=== PATIENT | female | born 1985 ===

== ENCOUNTER 2018-10-29 02:13 | Inpatient (IN) | payer OTHER ==
[2018-10-29 03:50] VITALS: BMI 21.4
[2018-10-29] MEDS ORDERED: Magnesium Hydroxide Susp 30 ml UD PO PRN (03:50)
[2018-10-29] MEDS ORDERED: DiphenhydrAMINE 50 mg/ml Inj IM PRN (03:50)
[2018-10-29] MEDS ORDERED: Alum-Mag Hydrox-Simethicone Susp (30 mL) PO PRN (03:50)
--- NOTE | 2018-10-29 03:52 | ED PDOC ---
Psych Transfer Clearance - Clearance Statement Clearance Statement: Reviewed vital signs, lab results and transfer papers. Patient clinically stable for psychiatric admission.
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
[2018-10-29 08:29] LABS: HEMOGLOBIN 13.4 g/dL (12.0-16.0); MEAN CELL VOLUME 86.4 fl (81.0-99.0); MEAN CORPUSCULAR HEMOGLOBIN 28.7 pg (27.0-31.0); MEAN CORPUSCULAR HGB CONC 33.3 g/dL (33.0-37.0); RBC 4.65 Mil/uL (3.80-5.20); RED CELL DISTRIBUTION WIDTH 13.4 % (11.5-14.5); WHITE BLOOD COUNT 7.4 K/uL (4.8-10.8)
[2018-10-29 08:43] LABS: ALB/GLOB RATIO 1.4 (1.0-2.1); ALBUMIN 4.8 g/dL (3.5-5.0); ALT/SGPT 25 U/L (9-52); AST/SGOT 24 U/L (14-36); BLOOD UREA NITROGEN 16 mg/dl (7-17); CALCIUM 9.2 mg/dL (8.4-10.2); GFR NON-AFRICAN AMERICAN > 60; HDL CHOLESTEROL 49 MG/DL (30-70)
[2018-10-29 08:55] LABS: LDL CHOLESTEROL 71 mg/dL (0-129)
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
--- NOTE | 2018-10-30 14:49 | PCM.PYCHPN ---
Psychiatric Progress Note - Psychiatric Progress Note Patient seen today, length of contact: pt evaluated discussed with team chart reviewed Patient Chief Complaint: I am feeling less anxious Problems Identified/Issues Discussed: pt seen in bed reported feeling less anxious, continues to present with depressed mood and affect, discussed gradual increase in dose of lexapro, no reported side effects also discussed adding trazodone for insomnia , encouraged pt to attend groups, pt denied any current active thoughts of self harm on the unit denied perceptual disturbances Medical Problems: no history of previous psychiatric treatment DSM 5 Symptoms Update: major depression Medication Change: Yes (start trazodone ) Medical Record Reviewed: Yes Mental Status Examination - Cognitive Function Orientation: Person, Place, Situation, Time Attention: WNL Concentration: WNL Association: WNL Fund of Knowledge: WN Decription of patient's judgement and insights: fair insight and judgment - Mood Mood: Depressed, Anxious - Affect Affect: Constricted, Depressed - Formal Thought Process Formal Thought Process: No Impairment Psychotic Thoughts and Behaviors: pt denied perceptual disturbances - Suicidal Ideation Suicidal Ideation: No - Homicidal Ideation Homicidal Ideation: No Goal/Treatment Plan - Goal/Treatment Plan Need for Continued Stay: Severe depression anxiety, Discharge may exacerbated symptoms Progress Toward Problem(s) and Goals/Treatment Plan: lexapro 10mg daily trazodone 50mg qhs cbt group and supportive therapy
--- NOTE | 2018-10-31 13:48 | PCM.PYCHPN ---
Psychiatric Progress Note - Psychiatric Progress Note Patient seen today, length of contact: pt evaluated discussed with team chart reviewed Patient Chief Complaint: I am less overwhelmed Problems Identified/Issues Discussed: pt seen in day room, more interactive with staff and othe patients, reported feeling less overwhelmed and less anxious, motivated to start therapy on discharge , improved sleep and appetite, no reported side effects of medications pt denied any current active thoughts of self harm on the unit denied perceptual disturbances Medical Problems: no history of previous psychiatric treatment Medication Change: No Medical Record Reviewed: Yes Mental Status Examination - Cognitive Function Orientation: Person, Place, Situation, Time Attention: WNL Concentration: WNL Association: WNL Fund of Knowledge: [facility] Decription of patient's judgement and insights: fair insight and judgment - Mood Mood: Depressed, Anxious - Affect Affect: Constricted, Depressed - Formal Thought Process Formal Thought Process: No Impairment Psychotic Thoughts and Behaviors: pt denied perceptual disturbances - Suicidal Ideation Suicidal Ideation: No - Homicidal Ideation Homicidal Ideation: No Goal/Treatment Plan - Goal/Treatment Plan Need for Continued Stay: Severe depression anxiety, Discharge may exacerbated symptoms Progress Toward Problem(s) and Goals/Treatment Plan: lexapro 10mg daily trazodone 50mg qhs cbt group and supportive therapy referral to outpatient therapy on discharge
--- NOTE | 2018-11-01 10:29 | PCM.PYCHPN ---
Psychiatric Progress Note - Psychiatric Progress Note Patient seen today, length of contact: Pt evaluated, case discussed w/ team, chart reviewed Patient Chief Complaint: Depression Problems Identified/Issues Discussed: Patient reports that her mood is improving. She feels less depressed and less anxious. She reports improved sleep/appetite. She is engaging appropriately in the community. NO AH/VH/paranoia/SI/HI. No adverse effects to medications reported. Medication Change: No Medical Record Reviewed: Yes Consults ordered or reviewed: Medicine consult Mental Status Examination - Cognitive Function Orientation: Person, Place, Situation, Time Memory: Intact Attention: WNL Concentration: WNL Association: WNL Fund of Knowledge: [facility] Decription of patient's judgement and insights: Improving I/J - Mood Mood: Depressed, Anxious - Affect Affect: Constricted - Speech Speech: Appropriate - Formal Thought Process Formal Thought Process: No Impairment Psychotic Thoughts and Behaviors: No AH/VH/paranoia/delusions - Suicidal Ideation Suicidal Ideation: No - Homicidal Ideation Homicidal Ideation: No Goal/Treatment Plan - Goal/Treatment Plan Need for Continued Stay: Severe depression anxiety, Discharge may exacerbated symptoms Progress Toward Problem(s) and Goals/Treatment Plan: Major Depressive Disorder -Continue Lexapro -Individual and group therapy -Medicine consult -Psychoeducation -Disposition planning Estimated Date of D/C: 11/03/18
--- NOTE | 2018-11-02 10:18 | PCM.PYCHPN ---
Psychiatric Progress Note - Psychiatric Progress Note Patient seen today, length of contact: Pt evaluated, case discussed w/ team, chart reviewed Patient Chief Complaint: Depression, now improving Problems Identified/Issues Discussed: Patient reports that her mood continues to improve. She continues to have some sleep disturbances. She reports improved appetite. She is engaging appropriately in the community. No AH/VH/paranoia/SI/HI. No adverse effects to medications reported. Medication Change: No Medical Record Reviewed: Yes Consults ordered or reviewed: Medicine consult Mental Status Examination - Cognitive Function Orientation: Person, Place, Situation, Time Memory: Intact Attention: WNL Concentration: WNL Association: WNL Fund of Knowledge: [facility] Decription of patient's judgement and insights: Improving I/J - Mood Mood: Anxious - Affect Affect: Broad - Speech Speech: Appropriate - Formal Thought Process Formal Thought Process: No Impairment Psychotic Thoughts and Behaviors: No AH/VH/paranoia/delusions - Suicidal Ideation Suicidal Ideation: No - Homicidal Ideation Homicidal Ideation: No Goal/Treatment Plan - Goal/Treatment Plan Need for Continued Stay: Severe depression anxiety, Discharge may exacerbated symptoms Progress Toward Problem(s) and Goals/Treatment Plan: Major Depressive Disorder -Continue Lexapro -Individual and group therapy -Medicine consult -Psychoeducation -Disposition planning Estimated Date of D/C: 11/03/18
[2018-11-03 09:39] VITALS: BP 92/58; PULSE 79; RESP 19; TEMP 98.5
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
== END 2018-11-03 16:48 | disposition home or self-care (01) | DRG 751 ==
LOC: H.ER 02:13 → H.PSYCH 02:52
PROVIDERS: ADMIT Psychiatry & Neurology Psychiatry; ATTEND Psychiatry & Neurology Psychiatry
PROC: GZ51ZZZ Individual Psychotherapy, Behavioral (ICD-10-PCS; 2018-10-30)
PROC: GZ56ZZZ Individual Psychotherapy, Supportive (ICD-10-PCS; 2018-10-30)
PROC: GZHZZZZ Group Psychotherapy (ICD-10-PCS; principal; 2018-10-31)
DX: F33.2 Major depressive disorder, recurrent severe without psychotic features (principal); R45.851 Suicidal ideations; F41.1 Generalized anxiety disorder; F43.10 Post-traumatic stress disorder, unspecified; Z81.8 Family history of other mental and behavioral disorders; Z87.440 Personal history of urinary (tract) infections; Z91.410 Personal history of adult physical and sexual abuse; Z91.411 Personal history of adult psychological abuse; G47.9 Sleep disorder, unspecified